=== PATIENT | female | born 1950 | race Caucasian/White ===

== ENCOUNTER → 2017-04-20 | Outpatient (CLI) | payer OTHER | END | disposition disaster alternative care site (69) | LOC: GRAD 13:42 | DX: E11.621 Type 2 diabetes mellitus with foot ulcer (principal); L97.422 Non-pressure chronic ulcer of left heel and midfoot with fat layer exposed; L08.9 Local infection of the skin and subcutaneous tissue, unspecified; M85.88 Other specified disorders of bone density and structure, other site; M79.89 Other specified soft tissue disorders; M72.2 Plantar fascial fibromatosis; C49.22 Malignant neoplasm of connective and soft tissue of left lower limb, including hip; M25.572 Pain in left ankle and joints of left foot; M19.072 Primary osteoarthritis, left ankle and foot | CPT/HCPCS: A9577 ==